=== PATIENT | male | born 1950 | race Caucasian/White ===

== ENCOUNTER 2022-11-01 17:00 | Outpatient (CLI) | payer MEDICARE, BC, SELFPAY | END 2022-11-01 17:01 | disposition home or self-care (01) | LOC: AMB 11-05 09:23 | PROVIDERS: PCP Registered Nurse; Visit Provider Family Medicine | DX: M25.552 Pain in left hip (principal) | CPT/HCPCS: A0425; A0427 ==

== ENCOUNTER 2022-11-01 17:32 | Emergency (ER) | payer MEDICARE, BC, SELFPAY ==
[2022-11-01 17:39] VITALS: BP 147/87; PULSE 57; RESP 18; TEMP 36.3; O2SAT 98; BMI 31.7
--- NOTE | 2022-11-01 17:50 | CRLHL7_ITS ---
For Patients: As a result of the Century Cures Act, medical imaging exams and procedure reports are released immediately into your electronic medical record. You may view this report before your referring provider. If you have questions, please contact your health care provider. INDICATION: Dislocated left hip TECHNIQUE: AP views of the left hip. COMPARISONS: None available. FINDINGS: There is demonstration of a left total hip arthroplasty with grossly well located femoral and acetabular components. Degenerative changes of the sacroiliac joint are appreciated. IMPRESSION: Demonstration of left total hip arthroplasty with well located femoral and acetabular components. Dictated by Danielito Madera MD @ 11/01/2022 7:12:20 PM (Electronically Signed)
--- NOTE | 2022-11-01 17:51 | ED_ITS ---
HPI - General Adult General Chief complaint: Hip Injury/Pain Stated complaint: Dislocated Left Hip Time Seen by Provider: 11/01/22 17:44 History of Present Illness HPI narrative: This 71-year-old male comes in with a dislocation of his left hip. He was bending forward prior to arrival in is hip dislocated. He has had numerous surgeries to his hips but states that he has not dislocated this left hip in the past since it was replaced. He states that his last meal was at 9:00 a.m., 8 hours ago. He does not report any other injury. Related Data Home Medications Medication Instructions Recorded Confirmed bupropion HCl 150 mg 24 hr tablet, mg PO 11/01/22 extended release evolocumab 140 mg/mL subcutaneous mg subcut 11/01/22 syringe (Repatha Syringe) folic acid 1 mg tablet 11/01/22 furosemide 20 mg tablet mg 11/01/22 gabapentin 300 mg capsule mg 11/01/22 hydroxychloroquine 200 mg tablet mg PO 11/01/22 isosorbide mononitrate 60 mg mg PO 11/01/22 tablet,extended release 24 hr lisinopril 10 mg tablet mg 11/01/22 metoprolol succinate 50 mg mg PO 11/01/22 tablet,extended release 24 hr sertraline 100 mg tablet mg 11/01/22 Allergies Allergy/AdvReac Type Severity Reaction Status Date / Time codeine Allergy Verified 11/01/22 17:42 vancomycin Allergy Verified 11/01/22 17:42 Review of Systems Status of ROS: Reports: 10 or more systems reviewed and unremarkable except as noted in History and below Narrative: Constitutional: No fevers, no weight gain or loss. Eyes: No discharge. No vision changes. HENT: No congestion, no sore throat, no ear pain. Cardiovascular: No chest pain, no palpitations. Respiratory: No shortness of breath, no wheezes, no cough. Gastrointestinal: No abdominal pain, no vomiting, no diarrhea. Genitourinary: No dysuria, no hematuria. Musculoskeletal: Normal range of motion. Skin: No rashes, no pruritis. Neurological: No dizziness, weakness, sensory change, speech change. Endo/Heme/Allergies: No bruising or bleeding. No polydipsia. Pysch: no suicidality, no anxiety, no insomnia. All other systems reviewed and are negative. PFSH PFSH Social History Smoking Status: Current every day smoker What tobacco products do you use: cigarettes Smoking packs per day: 0.25 Smoking cigarettes per day: 5.0 Years smoked: 50 Smoking pack-years: 12.50 Do you use any of these nicotine containing products: None How often do you have a drink containing alcohol: monthly or less How many standard drinks containing alcohol do you have on a typical day: 1 or 2 How often do you have six or more drinks on one occasion: Never AUDIT-C Alcohol total score: 1 Non-prescribed substance use: denies use service: No Exam Narrative: Exam Narrative: Constitutional: Well-developed, well-nourished, no acute distress. HEENT: Normocephalic, atraumatic. Neck: Normal range of motion. Nontender. Supple. Heart: Regular. No murmurs. Normal rate. Intact distal pulses. Lungs: Clear to auscultation. No chest discomfort. No wheezes, rhonchi, or rales. Abdomen: Normal bowel sounds. Nontender. No rebound tenderness. Genitalia: Deferred. Back: No midline tenderness. Normal range of motion. Extremities: Anterior fullness in the left hip. Unable to move his leg. Skin: Intact. No rash. Warm. No erythema or pallor. Neurologic: No altered sensation. No weakness. Alert and oriented. Psychiatric: No suicidality. No anxiety or depression. No insomnia. Nursing notes and vitals signs are reviewed. Const: Vital Signs, click to edit/add: Vital Signs - 24 hr 11/01/22 17:39 11/01/22 18:52 11/01/22 19:01 Temperature 97.3 F L Pulse Rate [Right Pulse Oximeter] 57 L 52 L Respiratory Rate 18 14 Blood Pressure [Ri ght Upper Arm] 147/87 H 123/77 131/82 Pulse Oximetry 98 100 Oxygen Delivery Me thod Room Air Nasal Cannula Course Vital Signs Vital signs: Initial Vital Signs Temperature 97.3 F L 11/01/22 17:39 Temperature Source Temporal Artery Scan 11/01/22 17:39 Pulse Rate 57 L 11/01/22 17:39 Respiratory Rate 18 11/01/22 17:39 Blood Pressure 147/87 H 11/01/22 17:39 Blood Pressure Mean 107 11/01/22 17:39 Blood Pressure Position Standing 11/01/22 17:39 Pulse Oximetry 98 01/21/23 17:39 Oxygen Delivery Method 11/01/22 17:39 Vital Signs Temperature 97.3 F L 11/01/22 17:39 Pulse Rate 57 L 11/01/22 17:39 Respiratory Rate 18 11/01/22 17:39 Blood Pressure 147/87 H 11/01/22 17:39 Pulse Oximetry 98 11/01/22 17:39 Oxygen Delivery Method 11/01/22 17:39 Temperature 97.3 F L 11/01/22 17:39 Pulse Rate 52 L 11/01/22 18:52 Respiratory Rate 14 11/01/22 18:52 Blood Pressure 131/82 11/01/22 19:01 Pulse Oximetry 100 11/01/22 18:52 Oxygen Delivery Method 11/01/22 18:52 Medical Decision Making MDM Narrative Medical decision making narrative: This patient comes in with injury to his left hip typical of a anterior dislocation. An IV is established an x-ray images are obtained. He is a good candidate for propofol sedation. Anesthesia is available to come and assist in sedation for relocation of the dislocated hip. This patient received 0.5 mg of Dilaudid intravenously. At the time of sedation he received just 50 mg of propofol for sufficient sedation and relaxation. I was able to relocate the hip. His initial x-ray did not happen at the time when anesthesia was able to assist so an image of the left hip is obtained post reduction. This shows a properly seated hardware in the left hip. The patient states that he has no pain in is able to move his leg around normally. I did recommend keeping his legs abducted to prevent recurrent injury. I also offered a knee immobilizer which she declined. He is okay to be discharged home and encouraged to follow- up with his primary physician or orthopedic surgeon. Imaging Data XR L Hip: Radiologist's impression: Demonstration of left total hip arthroplasty with well located femoral and acetabular components. Discharge Plan Discharge Clinical Impression: Dislocation, hip Patient Disposition: Home w/ Parent or Adult Condition: Improved Additional Instructions: Activity as tolerated. Keep hips and legs abducted to prevent recurrent injury. Follow-up with primary physician or orthopedic surgeon. Prescriptions: No Action metoprolol succinate 50 mg tablet extended release 24 hr PO Label Comments: TAKE 1 TABLET BY MOUTH AT BEDTIME DO NOT CRUSH OR CHEW sertraline 100 mg tablet Label Comments: TAKE 2 TABLETS BY MOUTH ONCE DAILY lisinopril 10 mg tablet Label Comments: TAKE 1 TABLET BY MOUTH AT BEDTIME gabapentin 300 mg capsule Label Comments: TAKE 1 CAPSULE BY MOUTH ONCE DAILY AT BEDTIME folic acid 1 mg tablet Label Comments: TAKE 1 TABLET BY MOUTH ONCE DAILY furosemide 20 mg tablet Label Comments: TAKE 1 TABLET BY MOUTH ONCE DAILY hydroxychloroquine 200 mg tablet PO Label Comments: TAKE 1 TABLET BY MOUTH TWICE DAILY bupropion HCl 150 mg tablet extended release 24 hr PO Label Comments: TAKE 1 TABLET BY MOUTH ONCE DAILY isosorbide mononitrate 60 mg tablet extended release 24 hr PO Label Comments: TAKE 1 TABLET BY MOUTH ONCE DAILY Repatha Syringe 140 mg/mL syringe SUBCUT Label Comments: INJECT 1 ML UNDER THE SKIN EVERY 14 DAYS Follow Up/Referrals: Salena Suarez NP [Primary Care Provider] - Stand Alone Forms: [facility] Info Instructions
[2022-11-01] MEDS: HYDROmorphone 0.5 mg/0.5 ml inj IVP (18:27)
[2022-11-01 18:52] VITALS: BP 123/77; PULSE 52; RESP 14; O2SAT 100
--- NOTE | 2022-11-01 18:54 | W.ANESCHARGE ---
Anesthesia Charges Start Date/Time Anesthesia Start Date: 11/01/22 Anesthesia Start Time: 18:30 Stop Date/Time Anesthesia Stop Date: 11/01/22 Anesthesia Stop Time: 18:45 Summary Emergency: Yes Extremes of Age: Over 71-CPT [id number]
[2022-11-01 19:01] VITALS: BP 131/82
[2022-11-01 19:58] VITALS: BP 140/66
== END 2022-11-01 19:59 | disposition home or self-care (01) ==
PROVIDERS: Emergency Provider Emergency Medicine Emergency Medical Services; PCP Registered Nurse
DX: T84.020A Dislocation of internal right hip prosthesis, initial encounter (principal)
CPT/HCPCS: 01200; 27266; 73501; 99100; 99140; 99284; 99285; J1170; J2704